=== PATIENT | male | born 1965 | race African-American/Black ===

== ENCOUNTER 2016-11-24 12:30 | Emergency (ER) | payer OTHER ==
[~2016-11-24] VITALS: Ht 175.3 cm; Wt 121.4 kg
[~2016-11-24 12:30] MED LIST: ALLEGRA180 MG PO; ASPIR-LOW81 MG PO; ATORVASTATIN CA80 MG PO; AUGMENTIN875 MG NG; CARDIZEM CD,CA180 MG PO; COUMADIN10 MG PO; COUMADIN3 MG PO; DIAZEPAM5 MG PO; FLONASE16 G1 BOTH NARES; FLUTICASONE PROPIONA; GLIPIZIDE10 MG PO; GLUCOPHAGE1000 MG PO; GLUCOTROL XL10 MG PO; GLUCOTROL10 MG PO; HYDROCHLOROTHIA25 MG PO; HYDRODIURIL,ORE25 MG PO; JANUVIA25 M1 PO; KOMBIGLYZE XR1 EAC2 PO; LIDODERM 5% P1 PATCH TD; LIPITOR80 MG PO; LISINOPRIL40 MG PO; MEDROL DOSEPAK4 MG PO; METFORMIN HCL1000 M1 PO; METFORMIN HCL1000 MG PO; NAPROSYN500 MG PO; NORCO 7.5/321 TABLET PO; OMEPRAZOLE20 MG PO; PERCOCET 5/31 TABLET PO; PERCOCET 7.51 TABLET PO; PRINIVIL20 MG PO; TOBREX5 ML RIGHT EYE; VALIUM5 MG PO; ZESTRIL,PRINIVI40 MG PO
[2016-11-24 13:15] LABS: HEMATOCRIT 42.7 % (38.0-50.0); MCH 27.4 PG (29.0-34.0); MCHC 32.8 G/DL (30.0-36.0); MCV 83.6 FL (86-99); MEAN PLAT.VOLUME 10.4 uM^3 (9.0-12.4); PLATELET COUNT 198 K/uL (156-360); RBC DIS.WIDTH-SD 42.8 % (39-53); RED BLOOD COUNT 5.11 M/uL (4.00-5.50); WHITE BLOOD COUNT 6.7 K/uL (4.1-10.2)
[2016-11-24 13:29] LABS: CHLORIDE 105 mEq/L (99-109); POTASSIUM 3.9 mEq/L (3.7-5.4); SODIUM 139 mEq/L (136-147)
[2016-11-24 13:31] LABS: GLUCOSE 226 mg/dL (70-99)
[2016-11-24 13:32] LABS: ANION GAP 10 MEQ/L (2-14)
[2016-11-24 13:35] LABS: GFR ESTIMATE (CALCULATED) > 59 mL/min/; UREA NITROGEN (BUN) 12 mg/dL (9-23)
[2016-11-24 13:43] LABS: PROTHROMBIN TIME 47.6 (9.2-11.2)
[2016-11-24 13:44] LABS: INTER. NORMALIZED RATIO 4.5
[2016-11-24] MEDS ORDERED: VALIUM5 MG PO (15:16)
[2016-11-24] MEDS ORDERED: PERCOCET 5/31 TABLET PO (15:16)
[2016-11-24 15:27] VITALS: BP 153/87
== END 2016-11-24 15:28 | disposition home or self-care (01) ==
LOC: EXP 12:30 → EME 12:30 → EXP 15:28
PROVIDERS: Emergency Medicine
DX: S32.048A Other fracture of fourth lumbar vertebra, initial encounter for closed fracture (principal); W10.9XXA Fall (on) (from) unspecified stairs and steps, initial encounter; Y92.009 Unspecified place in unspecified non-institutional (private) residence as the place of occurrence of the external cause; I10 Essential (primary) hypertension; E78.5 Hyperlipidemia, unspecified; E11.9 Type 2 diabetes mellitus without complications; Z79.84 Long term (current) use of oral hypoglycemic drugs; I48.91 Unspecified atrial fibrillation; Z86.711 Personal history of pulmonary embolism; Z86.718 Personal history of other venous thrombosis and embolism; Z79.01 Long term (current) use of anticoagulants; F17.200 Nicotine dependence, unspecified, uncomplicated
CPT/HCPCS: 70450; 72131; 80048; 85027; 85610; 99281; 99284; J1170; J1885

== ENCOUNTER 2016-11-28 07:05 | Emergency (ER) | payer OTHER ==
[~2016-11-28] VITALS: Ht 175.3 cm; Wt 120.8 kg
[2016-11-28 07:48] LABS: ADD MIUA? YES; BILIRUBIN NEGATIVE; BLOOD SMALL; COLOR YELLOW ((YELLOW)); GLUCOSE (STRIP) >=500; KETONES 5; LEUKOCYTES NEGATIVE; NITRITE NEGATIVE; PROTEIN (STRIP) NEGATIVE; SPECIFIC GRAVITY 1.027 (1.000-1.030)
[2016-11-28 07:51] LABS: BACTERIA RARE /HPF; EPITHELIAL CELLS RARE /HPF; MUCUS TRACE /LPF; RED BLOOD CELLS 0-5 /HPF (0-5); UCUL ADDED? NO; WHITE BLOOD CELLS 0-5 /HPF (0-5)
[2016-11-28 07:56] LABS: AMPHETAMINE NEGATIVE (500 ng/mL); BARBITURATES NEGATIVE (200 ng/mL); BENZODIAZEPINES PRESUMPTIVE POSITIVE (150 ng/mL); COCAINE NEGATIVE (150 ng/mL); INTERNAL CONTROLS VALID? YES; METHADONE NEGATIVE (200 ng/mL); METHAMPHETAMINE NEGATIVE (500 ng/mL); OPIATES (MORPHINE) NEGATIVE (100 ng/mL); OXYCODONE PRESUMPTIVE POSITIVE (100 ng/mL); PHENCYCLIDINE NEGATIVE (25 ng/mL); PROPOXYPHENE NEGATIVE (300 ng/mL); THC CANNABINOIDS NEGATIVE (50 ng/mL); TRICYCLIC ANTIDEPRESSANTS NEGATIVE (300 ng/mL)
[2016-11-28 07:57] LABS: ADD MEDTOX COMMENT Y
[2016-11-28 08:42] LABS: BENZODIAZEPINES QUANT VALUE 0 NG/ML
[2016-11-28 08:59] LABS: BENZODIAZEPINES, URINE SCREEN Negative (200 ng/mL)
[2016-11-28 09:13] VITALS: BP 164/99
== END 2016-11-28 09:14 | disposition home or self-care (01) ==
LOC: EME 07:05
PROVIDERS: Nurse Practitioner Family
DX: S32.2XXA Fracture of coccyx, initial encounter for closed fracture (principal); S32.048A Other fracture of fourth lumbar vertebra, initial encounter for closed fracture; W19.XXXA Unspecified fall, initial encounter; I10 Essential (primary) hypertension; E78.00 Pure hypercholesterolemia, unspecified; E11.9 Type 2 diabetes mellitus without complications; Z86.718 Personal history of other venous thrombosis and embolism; Z79.01 Long term (current) use of anticoagulants; F17.200 Nicotine dependence, unspecified, uncomplicated
CPT/HCPCS: 72220; 81003; 84999; 99281; 99283

== ENCOUNTER 2017-11-03 08:15 | Day surgery (SDC) | payer OTHER ==
[~2017-11-03] VITALS: Ht 175.3 cm; Wt 125.6 kg
[~2017-11-03 08:15] MED LIST changes: +JARDIANCE25 MG PO; +TANZEUM50 MG/0.5 SC
[2017-11-03 09:37] LABS: INTER. NORMALIZED RATIO 1.3
== END 2017-11-03 10:31 | disposition home or self-care (01) ==
LOC: PAIN 08:15 → SDC 08:45 → PAIN 10:31
PROVIDERS: Anesthesiology Pain Medicine
DX: M51.16 Intervertebral disc disorders with radiculopathy, lumbar region (principal); M47.816 Spondylosis without myelopathy or radiculopathy, lumbar region; M48.061 Spinal stenosis, lumbar region without neurogenic claudication; E11.40 Type 2 diabetes mellitus with diabetic neuropathy, unspecified; I10 Essential (primary) hypertension; I48.91 Unspecified atrial fibrillation; E78.5 Hyperlipidemia, unspecified; D50.0 Iron deficiency anemia secondary to blood loss (chronic); Z79.01 Long term (current) use of anticoagulants; Z79.84 Long term (current) use of oral hypoglycemic drugs; F17.200 Nicotine dependence, unspecified, uncomplicated
CPT/HCPCS: 82948; 85610; 93005; J1100; J2250

== ENCOUNTER 2018-02-07 07:25 | Day surgery (SDC) | payer OTHER ==
[~2018-02-07] VITALS: Ht 175.3 cm; Wt 110.2 kg
[~2018-02-07 07:25] MED LIST changes: +ASCORBIC ACID500 M3 PO; +MEN'S MULTI-VI1 EACH PO; +PERCOCET 10/1 TABLET PO; +VITAMIN D-32000 UNI2 PO
[2018-02-07 08:23] LABS: PTT 22.8 SEC (25-37)
[2018-02-07 08:37] LABS: CHLORIDE 107 MEQ/L (99-109); POTASSIUM 3.5 MEQ/L (3.7-5.4); SODIUM 141 MEQ/L (136-147)
[2018-02-07 08:43] LABS: CREATININE 1.1 MG/DL (0.6-1.3); GFR ESTIMATE (CALCULATED) > 59 mL/min/ (58.99-99999); GLUCOSE 145 mg/dL (70-99); UREA NITROGEN (BUN) 16 mg/dL (9-23)
== END 2018-02-07 09:12 | disposition home or self-care (01) ==
LOC: PAIN 07:25
PROVIDERS: Anesthesiology Pain Medicine
PROC: 3E0R33Z Introduction of Anti-inflammatory into Spinal Canal, Percutaneous Approach (ICD-10-PCS; principal; 2018-02-07)
PROC: 3E0R3BZ Introduction of Anesthetic Agent into Spinal Canal, Percutaneous Approach (ICD-10-PCS; principal; 2018-02-07)
PROC: B01B1ZZ Fluoroscopy of Spinal Cord using Low Osmolar Contrast (ICD-10-PCS; principal; 2018-02-07)
DX: M51.16 Intervertebral disc disorders with radiculopathy, lumbar region (principal); M47.816 Spondylosis without myelopathy or radiculopathy, lumbar region; M48.061 Spinal stenosis, lumbar region without neurogenic claudication; M16.9 Osteoarthritis of hip, unspecified; M75.50 Bursitis of unspecified shoulder; E11.42 Type 2 diabetes mellitus with diabetic polyneuropathy; I10 Essential (primary) hypertension; E78.5 Hyperlipidemia, unspecified; D50.0 Iron deficiency anemia secondary to blood loss (chronic); Z79.01 Long term (current) use of anticoagulants; Z79.84 Long term (current) use of oral hypoglycemic drugs; Z79.891 Long term (current) use of opiate analgesic; F17.200 Nicotine dependence, unspecified, uncomplicated
CPT/HCPCS: 80048; 82948; 85610; 85730; J1100; J2250

== ENCOUNTER 2018-03-21 07:09 | Day surgery (SDC) | payer OTHER ==
[~2018-03-21] VITALS: Ht 175.3 cm; Wt 110.2 kg
== END 2018-03-21 08:55 | disposition home or self-care (01) ==
LOC: PAIN 07:09 → SDC 07:45 → PAIN 07:45
PROVIDERS: Anesthesiology Pain Medicine
DX: M54.16 Radiculopathy, lumbar region (principal); M51.26 Other intervertebral disc displacement, lumbar region; M47.816 Spondylosis without myelopathy or radiculopathy, lumbar region; M21.70 Unequal limb length (acquired), unspecified site; F17.200 Nicotine dependence, unspecified, uncomplicated; E11.9 Type 2 diabetes mellitus without complications; Z79.84 Long term (current) use of oral hypoglycemic drugs; E53.8 Deficiency of other specified B group vitamins; I10 Essential (primary) hypertension; E78.5 Hyperlipidemia, unspecified; I48.91 Unspecified atrial fibrillation; Z86.718 Personal history of other venous thrombosis and embolism; Z79.01 Long term (current) use of anticoagulants; E66.9 Obesity, unspecified; Z68.39 Body mass index [BMI] 39.0-39.9, adult; K21.9 Gastro-esophageal reflux disease without esophagitis; Z96.642 Presence of left artificial hip joint
CPT/HCPCS: 82948; J1100; J2250; J3010